=== PATIENT | male | born 1955 | race Caucasian/White ===

== ENCOUNTER 2016-11-16 07:13 | Outpatient (CLI) | payer BC | END 2016-11-16 07:14 | disposition home or self-care (01) | DX: R73.01 Impaired fasting glucose (principal); E78.1 Pure hyperglyceridemia ==

== ENCOUNTER 2017-01-04 08:32 | Outpatient (CLI) | payer BC ==
[2017-01-04 08:57] LABS: CREATININE 1.1 mg/dL (0.6-1.2)
[2017-01-04] MEDS ORDERED: IOPAMIDOL-300 50 ML VIAL PO ONE (10:04)
[2017-01-04] MEDS ORDERED: IOPAMIDOL-300 100 ML VIAL IVP ONE (10:04)
--- NOTE | 2017-01-04 11:49 | CT Report ---
CT PELVIS WITH ORAL AND INTRAVENOUS CONTRAST: 01/04/2017 CLINICAL INDICATION: Chronic pain status post left inguinal hernia repair. TECHNIQUE: Axial CT images of the pelvis were obtained with 100 mL Isovue-300 intravenously as well as oral contrast. FINDINGS: There is sigmoid diverticulosis, without CT evidence of diverticulitis. The urinary bladd er appears unremarkable. No pelvic adenopathy or free fluid is present. The appendix is seen in the right lower quadrant, and is normal in caliber. There is no evidence of a recurrent left inguinal h ernia. No abnormal fluid collection is seen in the left inguinal region. No inguinal adenopathy is present. Osseous structures demonstrate degenerative changes. IMPRESSION: SIGMOID DIVERTICULOSIS, WITHOUT CT EVIDENCE OF DIVERTICULITIS. NO EVIDENT ETIOLOGY FOR PATIENT'S LEFT INGUINAL PAIN. In accordance with CT protocol optimization, one or more of the following dose reduction techniques w ere utilized for this exam: automated exposure control, adjustment of mA and/or KV based on patient size, or use of iterative reconstructive technique. JOB #: [id number] EXT JOB #:[id number]
== END 2017-01-04 08:33 | disposition home or self-care (01) ==
LOC: LAB 08:32
PROVIDERS: ATTEND Surgery
DX: G89.28 Other chronic postprocedural pain (principal); K57.30 Diverticulosis of large intestine without perforation or abscess without bleeding
CPT/HCPCS: 36415; 72193; 82565; Q9967

== ENCOUNTER 2018-04-08 07:20 | Outpatient (CLI) | payer BC ==
[2018-04-08 12:27] LABS: BASOPHILS % (AUTO) 0.7 %; EOSINOPHILS # (AUTO) 0.3 10^3/uL (0.0-0.7); EOSINOPHILS % (AUTO) 4.6 %; HGB - HEMOGLOBIN 15.1 g/dL (14.0-18.0); LYMPHOCYTES # (AUTO) 2.1 10^3/uL (1.5-3.5); MEAN CORPUSCULAR HEMOGLOBIN 31.1 pg (27.0-31.0); MEAN CORPUSCULAR HGB CONC 34.6 g/dL (32.0-36.0); MEAN CORPUSCULAR VOLUME 90.1 fL (80.0-94.0); MONOCYTES # (AUTO) 0.6 10^3/uL (0.0-1.0); MONOCYTES % (AUTO) 10.3 %; NEUTROPHILS # (AUTO) 2.8 10^3/uL (1.5-6.6); NEUTROPHILS % (AUTO) 48.4 %; PLT - PLATELET COUNT 190 10^3/uL (130-450); RED BLOOD COUNT 4.86 10^6/uL (4.70-6.10); RED CELL DISTRIBUTION WIDTH 14.3 % (12.0-15.0); WHITE BLOOD COUNT 5.7 x10^3/uL (4.8-10.8)
[2018-04-08 12:42] LABS: ALBUMIN 4.2 g/dL (3.2-5.5); ALBUMIN/GLOBULIN RATIO 1.4 (1.0-2.2); ALKALINE PHOSPHATASE 48 IU/L (42-121); ALT ALANINE AMINOTRANSFERASE 55 IU/L (10-60); AST ASPARTATE AMINOTRANSFERASE 33 IU/L (10-42); BUN - BLOOD UREA NITROGEN 17 mg/dL (6-20); CARBON DIOXIDE - CO2 23 mmol/L (21-32); CHLORIDE 106 mmol/L (101-111); CHOL/HDL RATIO 4.4 (<5.0); CHOLESTEROL 222 mg/dL; GFR - MDRD 76 (>89); GLUCOSE 124 mg/dL (70-100); HDL CHOLESTEROL 50 mg/dL; LDL CHOLESTEROL,CALCULATED 142 mg/dL; LDL/HDL RATIO 2.8 (<3.6); SODIUM 137 mmol/L (135-145); TOTAL PROTEIN 7.2 g/dL (6.7-8.2); VLDL CHOLESTEROL 30 mg/dL
== END 2018-04-08 07:21 | disposition home or self-care (01) ==
LOC: LAB.WCP 07:20
PROVIDERS: ATTEND Family Medicine
DX: E78.5 Hyperlipidemia, unspecified (principal); Z51.81 Encounter for therapeutic drug level monitoring; Z79.899 Other long term (current) drug therapy
CPT/HCPCS: 36415; 80053; 80061; 83721; 84443; 85025

== ENCOUNTER 2018-10-22 08:00 | Outpatient (CLI) | payer BC ==
[2018-10-21 13:51] LABS: HEMOGLOBIN A1C 0.67 g/dL
[2018-10-21 14:14] LABS: ALBUMIN/GLOBULIN RATIO 1.2 (1.0-2.2); ALKALINE PHOSPHATASE 49 IU/L (42-121); ALT ALANINE AMINOTRANSFERASE 48 IU/L (10-60); AST ASPARTATE AMINOTRANSFERASE 32 IU/L (10-42); BILIRUBIN,TOTAL 1.3 mg/dL (0.2-1.0); BUN - BLOOD UREA NITROGEN 16 mg/dL (6-20); CALCIUM 9.1 mg/dL (8.5-10.3); CARBON DIOXIDE - CO2 26 mmol/L (21-32); CHLORIDE 104 mmol/L (101-111); CHOLESTEROL 243 mg/dL; CREATININE 0.7 mg/dL (0.6-1.2); GFR - MDRD 114 (>89); GLUCOSE 125 mg/dL (70-100); HDL CHOLESTEROL 49 mg/dL; LDL CHOLESTEROL,CALCULATED 148 mg/dL; SODIUM 137 mmol/L (135-145); TOTAL PROTEIN 7.3 g/dL (6.7-8.2); VLDL CHOLESTEROL 46 mg/dL
[2018-10-21 14:39] LABS: HB2 TOTAL 16.8 g/dL; HEMOGLOBIN A1C % 5.8 % (4.6-6.2)
== END 2018-10-22 23:59 | disposition home or self-care (01) ==
LOC: LAB.WCP 08:00
PROVIDERS: ATTEND Family Medicine
DX: E11.9 Type 2 diabetes mellitus without complications (principal); Z12.5 Encounter for screening for malignant neoplasm of prostate
CPT/HCPCS: 36415; 80053; 80061; 82043; 83036; 83721; 84153

== ENCOUNTER 2018-11-02 07:58 | Outpatient (CLI) | payer BC ==
--- NOTE | 2018-11-02 13:24 | XRAY Report ---
Reason: [id number] Procedure Date: 11/02/2018 Accession Number: [id number] / [id number] Procedure: WCP - Elbow 2 View LT CPT Code: FULL RESULT: EXAM: LEFT ELBOW RADIOGRAPHY EXAM DATE: 11/02/2018 08:08 AM. CLINICAL HISTORY: Elbow pain COMPARISON: ELBOW 2 VIEW BILAT 05/28/2016 4:03 PM. TECHNIQUE: 2 views. FINDINGS: Bones: No fracture or focal bony lesion. Joints: No evidence of dislocation. There is joint space narrowing and marginal osteophyte formation. Soft Tissues: No unexpected soft tissue findings. IMPRESSION: 1. No fracture or dislocation. 2. 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 RADIA
== END 2018-11-02 07:59 | disposition home or self-care (01) ==
LOC: DI.WCP 07:58
PROVIDERS: ATTEND Family Medicine
DX: M19.022 Primary osteoarthritis, left elbow (principal)

== ENCOUNTER 2019-08-18 09:06 | Outpatient (CLI) | payer BC ==
[2019-08-18 13:04] LABS: BUN - BLOOD UREA NITROGEN 15 mg/dL (6-20); CALCIUM 8.9 mg/dL (8.5-10.3); CARBON DIOXIDE - CO2 27 mmol/L (21-32); CHLORIDE 105 mmol/L (101-111); CHOL/HDL RATIO 4.1 (<5.0); CHOLESTEROL 234 mg/dL; CREATININE 0.9 mg/dL (0.6-1.2); GFR - MDRD 85 (>89); GLUCOSE 125 mg/dL (70-100); HB2 TOTAL 15.1 g/dL; HDL CHOLESTEROL 57 mg/dL; HEMOGLOBIN A1C 0.64 g/dL; LDL CHOLESTEROL,CALCULATED 117 mg/dL; LDL/HDL RATIO 2.1 (<3.6); SODIUM 142 mmol/L (135-145); VLDL CHOLESTEROL 60 mg/dL
== END 2019-08-18 23:59 | disposition home or self-care (01) ==
LOC: LAB.WCP 09:06
PROVIDERS: ATTEND Family Medicine
DX: E11.9 Type 2 diabetes mellitus without complications (principal); E78.1 Pure hyperglyceridemia
CPT/HCPCS: 36415; 80048; 80061; 83036; 83721

== ENCOUNTER 2019-08-25 08:05 | Outpatient (CLI) | payer BC | END 2019-08-25 23:59 | disposition home or self-care (01) | LOC: LAB.WCP 08:05 | PROVIDERS: ATTEND Family Medicine | DX: Z00.00 Encounter for general adult medical examination without abnormal findings (principal); Z12.5 Encounter for screening for malignant neoplasm of prostate | CPT/HCPCS: 36415; 84153 ==

== ENCOUNTER 2019-12-15 08:00 | Outpatient (CLI) | payer BC ==
[2019-12-15 21:21] LABS: TRICHOMONAS VAGINALIS DNA NEGATIVE (NEGATIVE)
[2019-12-16 07:50] LABS: HIV AG/AB 4TH GEN NON-REACTIVE (NON-REACTIVE)
[2019-12-19 12:50] LABS: HSV 1 IGG TYPE SPECIFIC AB 1.35 index; HSV 2 IGG TYPE SPECIFIC AB <0.90 index
== END 2019-12-15 08:01 | disposition home or self-care (01) ==
LOC: LAB.WCP 08:00
PROVIDERS: ATTEND Family Medicine
DX: Z11.3 Encounter for screening for infections with a predominantly sexual mode of transmission (principal)
CPT/HCPCS: 36415; 81599; 86592; 86695; 86696; 87389; 87491; 87591; 87661

== ENCOUNTER 2020-08-06 08:50 | Outpatient (CLI) | payer BC ==
[2020-08-06 11:59] LABS: BASOPHILS # (AUTO) 0.1 10^3/uL (0.0-0.1); BASOPHILS % (AUTO) 1.1 %; EOSINOPHILS # (AUTO) 0.4 10^3/uL (0.0-0.7); EOSINOPHILS % (AUTO) 5.2 %; HGB - HEMOGLOBIN 16.3 g/dL (14.0-18.0); LYMPHOCYTES # (AUTO) 2.7 10^3/uL (1.5-3.5); LYMPHOCYTES % (AUTO) 32.9 %; MEAN CORPUSCULAR HEMOGLOBIN 31.9 pg (27.0-31.0); MEAN CORPUSCULAR HGB CONC 33.7 g/dL (32.0-36.0); MEAN CORPUSCULAR VOLUME 94.5 fL (80.0-94.0); MEAN PLATELET VOLUME 9.8 fL (7.4-11.4); MONOCYTES # (AUTO) 0.7 10^3/uL (0.0-1.0); MONOCYTES % (AUTO) 8.1 %; NEUTROPHILS # (AUTO) 4.3 10^3/uL (1.5-6.6); PLT - PLATELET COUNT 231 10^3/uL (130-450); RED BLOOD COUNT 5.11 10^6/uL (4.70-6.10); RED CELL DISTRIBUTION WIDTH 12.6 % (12.0-15.0); WHITE BLOOD COUNT 8.3 x10^3/uL (4.8-10.8)
[2020-08-06 12:20] LABS: ALBUMIN 4.1 g/dL (3.2-5.5); ALBUMIN/GLOBULIN RATIO 1.4 (1.0-2.2); ALKALINE PHOSPHATASE 55 IU/L (42-121); ALT ALANINE AMINOTRANSFERASE 64 IU/L (10-60); AST ASPARTATE AMINOTRANSFERASE 33 IU/L (10-42); BILIRUBIN,TOTAL 0.6 mg/dL (0.2-1.0); BUN - BLOOD UREA NITROGEN 14 mg/dL (6-20); CALCIUM 9.7 mg/dL (8.5-10.3); CARBON DIOXIDE - CO2 26 mmol/L (21-32); CHLORIDE 103 mmol/L (101-111); CHOL/HDL RATIO 5.7 (<5.0); CHOLESTEROL 273 mg/dL; CREATININE 0.9 mg/dL (0.6-1.2); GLUCOSE 145 mg/dL (70-100); HDL CHOLESTEROL 48 mg/dL
[2020-08-06 12:47] LABS: LDL CHOLESTEROL,DIRECT 179 mg/dL; LDLD/HDL RATIO 3.7 (<3.6)
== END 2020-08-06 23:59 | disposition home or self-care (01) ==
LOC: LAB.WCP 08:50
PROVIDERS: ATTEND Family Medicine
DX: E11.9 Type 2 diabetes mellitus without complications (principal); E78.5 Hyperlipidemia, unspecified; Z12.5 Encounter for screening for malignant neoplasm of prostate
CPT/HCPCS: 36415; 80053; 80061; 83036; 83721; 84153; 85025

== ENCOUNTER 2020-11-11 13:53 | Emergency (ER) | payer BC, MEDICARE ==
[2020-11-11 13:59] VITALS: BP 158/85
[2020-11-11] MEDS ORDERED: PROPARACAINE 0.5% OPHTH DROPS 15 ML EACHEYE STA (14:01)
--- NOTE | 2020-11-11 14:23 | ED Physician Documentation ---
PD HPI OPHTHO - Stated complaint Stated Complaint: FB RT EYE - Chief complaint Chief Complaint: Heent - History obtained from History obtained from: Patient - History of Present Illness Timing - onset: How many hours ago (1) Timing - duration: Hours (1) Location: Right Associated symptoms: Redness, Tearing Contributing factors: FB. No: Recent URI, Chemical exposure, acid, Chemical exposure, base, Blunt trauma, Wears glasses, Wears contacts - Additional information Additional information: 65-year-old male presents to the emergency department complaint of right eye pain. He states he was outside when he felt like something flew into his eye. He states worse with opening, better with keeping his eye closed. There is tearing and redness. Is a right eye. Does not wear contacts or glasses. No chemical exposures. No trauma. Review of Systems Constitutional: denies: Fever, Chills GI: denies: Nausea, Vomiting PD PAST MEDICAL HISTORY - Past Medical History Past Medical History: Yes Cardiovascular: High cholesterol - Past Surgical History Past Surgical History: Yes - Present Medications Home Medications: Ambulatory Orders Medication Instructions Recorded Confirmed Mupirocin 2% Oint [Bactroban 2% 1 gm TOP BID #2 tube 07/14/14 Oint] Simvastatin 0 mg PO DAILY 07/14/14 07/14/14 Polymyxin B/Trimeth Ophth Drop 1 drops RIGHTEYE Q3H 7 Days #1 11/11/20 [Polytrim Ophth Drops] bottle - Allergies Allergies/Adverse Reactions: Allergies Allergy/AdvReac Type Severity Reaction Status Date / Time No Known Drug Allergies Allergy Verified 11/11/20 13:56 - Social History Does the pt smoke?: No Smoking Status: Never smoker Does the pt drink ETOH?: Yes Does the pt have substance abuse?: No - Immunizations Immunizations are current?: Yes - POLST Patient has POLST: No PD ED PE NORMAL - Vitals Vital signs reviewed: Yes - General General: Alert and oriented X 3, No acute distress - HEENT HEENT: Other (R eye - Small corneal abrasion. Eyelids everted. No foreign bodies. Otherwise normal exam of the right eye. There is conjunctival injection as well.) - Derm Derm: Warm and dry - Neuro Neuro: Alert and oriented X 3 Results - Vitals Vitals: Vital Signs - 24 hr 11/11/20 13:56 Temperature 36.8 C Heart Rate 72 Respiratory 16 Rate Blood Pressure 158/85 H O2 Saturation 98 Oxygen O2 Source Room air PD MEDICAL DECISION MAKING - ED course Complexity details: considered differential, d/w patient ED course: Right eye corneal abrasion. No foreign bodies. Will place on Polytrim ophthalmic. Eye was irrigated. Patient counseled regarding signs and symptoms for which I believe and urgent re-evaluation would be necessary. Patient with good understanding of and agreement to plan and is comfortable going home at this time This document was made in part using voice recognition software. While efforts are made to proofread this document, sound alike and grammatical errors may occur. Departure - Departure Disposition: 01 Home, Self Care Clinical Impression: Injury of conjunctiva and corneal abrasion of right eye w/o FB Qualifiers: Encounter type: initial encounter Qualified Code(s): S05.01XA - Injury of conjunctiva and corneal abrasion without foreign body, right eye, initial encounter Condition: Good Instructions: ED Eye Injury Corneal Abrasion Follow-Up: Felisa Kothari DO [Primary Care Provider] - Within 3 Days (if not better) Prescriptions: Polymyxin B/Trimeth Ophth Drop [Polytrim Ophth Drops] 1 drops RIGHTEYE Q3H 7 Days #1 bottle Comments: Use the antibiotic drops as prescribed. Follow-up with your doctor for further care. Return if you worsen. If you are not better within 3 days you should have your eyes rechecked. You can use the [facility] to help you with your prescription costs. Discharge Date/Time: 11/11/20 14:30
--- OUTSIDE RECORDS SUMMARY | 2020-11-11 14:25 | EXTERNAL MEDICAL SUMMARY RPT | Continuity of Care Document ---
:1955 Demographics Phone Unavailable Preferred Language Unknown Marital Status Unknown Bahai Affiliation Unknown Race Unknown Ethnic Group Unknown Author Organization [facility] Address [address] [id number] Phone Social History date description facility [phone]
== END 2020-11-11 14:30 | disposition home or self-care (01) ==
LOC: ED 13:53
DX: S05.01XA Injury of conjunctiva and corneal abrasion without foreign body, right eye, initial encounter (principal); X58.XXXA Exposure to other specified factors, initial encounter; Y93.H9 Activity, other involving exterior property and land maintenance, building and construction; Y92.007 Garden or yard of unspecified non-institutional (private) residence as the place of occurrence of the external cause
CPT/HCPCS: 99282; 99283; J3490

== ENCOUNTER 2020-12-16 07:44 | Outpatient (CLI) | payer MEDICARE ==
[2020-12-16 13:26] LABS: ALBUMIN 4.3 g/dL (3.2-5.5); ALBUMIN/GLOBULIN RATIO 1.3 (1.0-2.2); ALKALINE PHOSPHATASE 61 IU/L (42-121); ALT ALANINE AMINOTRANSFERASE 74 IU/L (10-60); AST ASPARTATE AMINOTRANSFERASE 43 IU/L (10-42); BILIRUBIN,TOTAL 1.2 mg/dL (0.2-1.0); BUN - BLOOD UREA NITROGEN 15 mg/dL (6-20); CARBON DIOXIDE - CO2 28 mmol/L (21-32); CHLORIDE 100 mmol/L (101-111); CHOL/HDL RATIO 5.3 (<5.0); CHOLESTEROL 254 mg/dL; GFR - MDRD 75 (>89); GLUCOSE 138 mg/dL (70-100); HDL CHOLESTEROL 48 mg/dL; POTASSIUM 4.2 mmol/L (3.5-5.0); SODIUM 140 mmol/L (135-145); TOTAL PROTEIN 7.5 g/dL (6.7-8.2); TRIGLYCERIDES 406 mg/dL
[2020-12-16 13:37] LABS: ESTIMATED AVERAGE GLUCOSE 126 mg/dL (70-100)
[2020-12-16 13:44] LABS: CREATININE,URINE 355.5 mg/dL; MICROALBUM/CREATININE RATIO,UR 6.2 ug/mg (<30.0); MICROALBUMIN,URINE 2.2 mg/dL (0-300.0)
[2020-12-16 14:15] LABS: LDL CHOLESTEROL,DIRECT 150 mg/dL; LDLD/HDL RATIO 3.1 (<3.6)
== END 2020-12-16 23:59 | disposition home or self-care (01) ==
LOC: LAB.WCP 07:44
PROVIDERS: ATTEND Family Medicine
DX: E78.1 Pure hyperglyceridemia (principal); E11.9 Type 2 diabetes mellitus without complications
CPT/HCPCS: 36415; 80053; 80061; 82043; 82570; 83036; 83721

== ENCOUNTER 2022-07-07 07:21 | Outpatient (CLI) | payer MEDICARE ==
--- NOTE | 2022-07-07 09:57 | Ultrasound Report ---
PROCEDURE: Aorta Screening INDICATIONS: HIST OF TOBACCO USE TECHNIQUE: Real time scanning was performed of the aorta and iliac arteries, with image documentatio n. COMPARISON: None. FINDINGS: Aorta: Proximal aortic diameter measures 2.5 x 2.5 cm. Mid-aorta measures 2.1 x 2 cm. Distal aorti c diameter is 1.5 x 1.8 cm. Minimal aortoiliac atherosclerotic plaque. Iliac arteries: Right common iliac artery measures 1.2 x 1.1 cm. Left common iliac artery measures 1.3 x 1.1 cm. IMPRESSION: No abdominal aortic aneurysm sonographically. Reviewed by: Jassi Webber MD on 07/07/2022 9:56 AM PST Approved by: Jassi Webber MD on 07/07/2022 9:56 AM [facility] Station ID: [id number]
== END 2022-07-07 07:22 | disposition home or self-care (01) ==
LOC: DI 07:21
PROVIDERS: ATTEND Physician Assistant
DX: Z13.6 Encounter for screening for cardiovascular disorders (principal); Z87.891 Personal history of nicotine dependence

== ENCOUNTER 2023-01-01 08:04 | Outpatient (CLI) | payer MEDICARE ==
[2023-01-01 08:25] LABS: BASOPHILS # (AUTO) 0.1 10^3/uL (0.0-0.1); EOSINOPHILS # (AUTO) 0.3 10^3/uL (0.0-0.7); HCT - HEMATOCRIT 48.7 % (42.0-52.0); HGB - HEMOGLOBIN 17.3 g/dL (14.0-18.0); LYMPHOCYTES # (AUTO) 2.1 10^3/uL (1.5-3.5); LYMPHOCYTES % (AUTO) 30.1 %; MEAN CORPUSCULAR HEMOGLOBIN 33.7 pg (27.0-31.0); MEAN CORPUSCULAR HGB CONC 35.5 g/dL (32.0-36.0); MEAN CORPUSCULAR VOLUME 94.7 fL (80.0-94.0); MEAN PLATELET VOLUME 9.4 fL (7.4-11.4); MONOCYTES # (AUTO) 0.6 10^3/uL (0.0-1.0); MONOCYTES % (AUTO) 9.1 %; NEUTROPHILS # (AUTO) 3.7 10^3/uL (1.5-6.6); NEUTROPHILS % (AUTO) 54.4 %; PLT - PLATELET COUNT 161 10^3/uL (130-450); RED BLOOD COUNT 5.14 10^6/uL (4.70-6.10); RED CELL DISTRIBUTION WIDTH 12.8 % (12.0-15.0); WHITE BLOOD COUNT 6.8 x10^3/uL (4.8-10.8)
[2023-01-01 08:45] LABS: ALBUMIN 3.9 g/dL (3.2-5.5); ALBUMIN/GLOBULIN RATIO 1.2 (1.0-2.2); ALKALINE PHOSPHATASE 62 IU/L (42-121); ALT ALANINE AMINOTRANSFERASE 101 IU/L (10-60); AST ASPARTATE AMINOTRANSFERASE 79 IU/L (10-42); BILIRUBIN,TOTAL 1.4 mg/dL (0.2-1.0); BUN - BLOOD UREA NITROGEN 11 mg/dL (6-20); CALCIUM 9.1 mg/dL (8.5-10.3); CARBON DIOXIDE - CO2 26 mmol/L (21-32); CHLORIDE 103 mmol/L (101-111); CHOLESTEROL 329 mg/dL; CREATININE 0.9 mg/dL (0.6-1.2); GFR - MDRD 84 (>89); GLUCOSE 160 mg/dL (70-100); HDL CHOLESTEROL 47 mg/dL; LDL CHOLESTEROL,CALCULATED 225 mg/dL; LDL/HDL RATIO 4.8 (<3.6); POTASSIUM 4.1 mmol/L (3.5-5.0); SODIUM 137 mmol/L (135-145); TOTAL PROTEIN 7.2 g/dL (6.7-8.2); TRIGLYCERIDES 286 mg/dL; VLDL CHOLESTEROL 57 mg/dL
== END 2023-01-01 08:05 | disposition home or self-care (01) ==
LOC: LAB 08:04
PROVIDERS: ATTEND Physician Assistant
DX: I10 Essential (primary) hypertension (principal); E78.5 Hyperlipidemia, unspecified; R74.8 Abnormal levels of other serum enzymes
CPT/HCPCS: 36415; 80053; 80061; 83721; 85025